=== PATIENT | male | born 1990 | race Hispanic/Latino ===

== ENCOUNTER 2022-02-12 09:33 | Outpatient (CLI) | payer BC ==
[2022-02-12 20:05] LABS: SARS-CoV-2 PCR by NAA Not Detected (NotDetected)
== END 2022-02-12 09:34 | disposition home or self-care (01) ==
LOC: LABBT 09:33
PROVIDERS: ATTEND Orthopaedic Surgery
DX: S82.142A Displaced bicondylar fracture of left tibia, initial encounter for closed fracture (principal); Z20.822 Contact with and (suspected) exposure to COVID-19
CPT/HCPCS: U0003; U0005

== ENCOUNTER 2022-02-13 11:39 | Day surgery (SDC) | payer BC ==
[2022-02-12 12:20] VITALS: BMI 38.2
[2022-02-13] MEDS ORDERED: Midazolam HCl 2 mg/2 ml Vial ONE ×2 (12:45→13:58)
[2022-02-13] MEDS ORDERED: Fentanyl 100 MCG/2 ML VIAL ONE ×3 (12:45→15:51)
[2022-02-13] MEDS ORDERED: fentaNYL Citrate/PF 100 MCG/2 ML SYRINGE ONE ×2 (13:58→14:29)
[2022-02-13] MEDS ORDERED: Sodium Chloride 0.9% 100 ML ONE (14:04)
[2022-02-13] MEDS ORDERED: CEFAZOLIN 2 GM VIAL ONE (14:04)
[2022-02-13] MEDS ORDERED: PROPOFOL 200 MG/20 ML VIAL ONE (14:14)
[2022-02-13] MEDS ORDERED: Ketorolac Tromethamine 30 MG/ML VIAL ONE (14:14)
[2022-02-13] MEDS ORDERED: Lidocaine 1% PF 5 ML VIAL ONE ×2 (14:14→15:59)
[2022-02-13] MEDS ORDERED: Bupivacaine HCl 0.5%/Epinephrine 1:200,000/PF 30 ml Vial ONE (14:14)
[2022-02-13] MEDS ORDERED: Ondansetron PF 4 MG/2 ML Vial ONE (14:14)
[2022-02-13] MEDS ORDERED: HYDROmorphone 0.5 MG/0.5 ML SYRINGE ONE (15:55)
[2022-02-13] MEDS ORDERED: hydrALAZINE 20 MG/ML VIAL ONE (16:37)
== END 2022-02-13 17:30 | disposition home or self-care (01) ==
LOC: SDC 11:39
PROVIDERS: ATTEND Orthopaedic Surgery
PROC: 3E0T3BZ Introduction of Anesthetic Agent into Peripheral Nerves and Plexi, Percutaneous Approach (ICD-10-PCS; principal; 2022-02-13)
PROC: 0QSH04Z Reposition Left Tibia with Internal Fixation Device, Open Approach (ICD-10-PCS; principal; 2022-02-13)
DX: S82.122A Displaced fracture of lateral condyle of left tibia, initial encounter for closed fracture (principal); E66.9 Obesity, unspecified; Z68.38 Body mass index [BMI] 38.0-38.9, adult; Z79.899 Other long term (current) drug therapy; X50.0XXA Overexertion from strenuous movement or load, initial encounter
CPT/HCPCS: 76000; C1713; J0360; J0690; J1170; J1885; J2250; J2405; J2704; J3010; J3490

== ENCOUNTER 2023-07-02 09:42 | Outpatient (CLI) | payer BC | END 2023-07-02 09:43 | disposition home or self-care (01) | LOC: RAD 09:42 | PROVIDERS: ATTEND Nurse Practitioner Family | DX: R22.31 Localized swelling, mass and lump, right upper limb (principal) ==